=== PATIENT | male | born 1955 | race Caucasian/White ===

== ENCOUNTER → 2022-12-22 11:13 | Outpatient (BNVA) | payer MEDICARE, SELFPAY | PROVIDERS: Referring Provider Nurse Practitioner Family; Visit Provider Student in an Organized Health Care Education/Training Program | DX: M79.642 Pain in left hand (principal); M72.0 Palmar fascial fibromatosis [Dupuytren] | CPT/HCPCS: 73130; 99204 ==

== ENCOUNTER → 2025-02-24 13:27 | Outpatient (BNVA) | payer MEDICARE, SELFPAY | PROVIDERS: Visit Provider Nurse Practitioner Family | DX: D69.2 Other nonthrombocytopenic purpura (principal); L81.4 Other melanin hyperpigmentation; L82.1 Other seborrheic keratosis; L30.9 Dermatitis, unspecified | CPT/HCPCS: 11104; 99203 ==